=== PATIENT | female | born 2005 | race Caucasian/White ===

== ENCOUNTER 2023-03-17 17:35 | Emergency (ER) | payer OTHER ==
[2023-03-17 17:41] VITALS: RESP 18; TEMP 97.6
[2023-03-17 18:06] LABS: Basophils % (A) 0 %; Eosinophils # (A) 0.1 k/uL (0-0.7); Eosinophils % (A) 1 %; HCT 41.4 % (34.0-46.0); HGB 14.2 gm/dL (11.4-16.0); Lymphocytes # (A) 0.9 k/uL (1.0-4.8); Lymphocytes % (A) 8 %; MCH 32.3 pg (25.0-35.0); MCHC 34.4 g/dL (31.0-37.0); MCV 93.8 fL (80.0-100.0); Mean Platelet Volume 8.3; Monocytes # (A) 0.6 k/uL (0-1.0); Monocytes % (A) 6 %; Neutrophils # (A) 9.2 k/uL (1.3-7.7); Neutrophils % (A) 84 %; Platelet Count 252 k/uL (150-450); RBC 4.41 m/uL (3.80-5.40); RDW 12.5 % (11.5-15.5); WBC 10.9 k/uL (4.0-11.0)
[2023-03-17 18:16] LABS: ALT 39 U/L (4-34); AST 44 U/L (14-36); African American GFR (CKD) >90 (>60 ml/min/1.73 sqM); Albumin 4.9 g/dL (3.5-5.0); Alcohol <10 mg/dL; Alkaline Phosphatase 65 U/L (38-126); Anion Gap 9 mmol/L; Blood Urea Nitrogen 14 mg/dL (7-17); Calcium 9.7 mg/dL (8.4-10.2); Carbon Dioxide 27 mmol/L (22-30); Chloride 104 mmol/L (98-107); Glucose 99 mg/dL (74-99); Non-African American GFR(CKD) >90 (>60 ml/min/1.73 sqM); Potassium 3.8 mmol/L (3.5-5.1); Sodium 140 mmol/L (137-145); Total Bilirubin 1.3 mg/dL (0.2-1.3)
[2023-03-17 18:22] LABS: Partial Thromboplastin Time 23.8 sec (22.0-30.0); Prothrombin Time 10.7 sec (9.0-12.0)
[2023-03-17] MEDS ORDERED: HYDROmorphone 0.5 MG/0.5 ML SYRINGE IVP STA (18:23)
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
--- NOTE | 2023-03-17 18:32 | CT ---
EXAM: CT Chest With Intravenous Contrast CLINICAL HISTORY: ITS.REASON CT Reason: trauma TECHNIQUE: Axial computed tomography images of the chest with intravenous contrast. CTDI is 12.8 mGy and DLP is 357.6 mGy-cm. This CT exam was performed using one or more of the following dose reduction techniques: automated exposure control, adjustment of the mA and/or kV according to patient size, and/or use of iterative reconstruction technique. COMPARISON: No relevant prior studies available. FINDINGS: [employer] Sales Representative image demonstrates an acute segmental fracture of the left humerus. Regional skeleton appears otherwise intact, without additional acute osseous abnormality within the bony thorax. Thoracic aorta and main pulmonary are normal. There is no mediastinal hematoma. There is no adenopathy. Heart size is normal. There is no pericardial effusion. Lungs are clear. There is no consolidation, contusion, mass, pleural effusion, or pneumothorax. IMPRESSION: 1. Acute segmental fracture of the left humerus midshaft. 2. Otherwise, no acute traumatic findings. EXAM: CT Abdomen and Pelvis With Intravenous Contrast CLINICAL HISTORY: ITS.REASON CT Reason: trauma TECHNIQUE: Axial computed tomography images of the abdomen and pelvis with intravenous contrast. CTDI is 9.8 mGy and DLP is 707.7 mGy-cm. This CT exam was performed using one or more of the following dose reduction techniques: automated exposure control, adjustment of the mA and/or kV according to patient size, and/or use of iterative reconstruction technique. Delayed imaging was performed. COMPARISON: No relevant prior studies available. FINDINGS: Evaluation is degraded by motion artifact, particularly affecting the upper abdomen. There is no evidence of solid organ, vascular, bowel, or bladder injury. There is no free fluid or free air. Liver, gallbladder, spleen, pancreas, adrenal glands, and kidneys appear unremarkable as visualized. Aorta is normal in caliber. There is no adenopathy. There is no free air. Appendix is not visualized. There is no bowel obstruction or inflammatory change. Urinary bladder is normal. Uterus appears normal. Bilateral adnexal cyst/follicles are noted, largest on the left measuring 3.6 cm. There is mild free pelvic fluid. Skeleton appears intact. IMPRESSION: No acute traumatic findings.
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
[2023-03-17 19:28] VITALS: BP 120/79; PULSE 81
[2023-03-17] MEDS ORDERED: HYDROcodone/APAP 5-325MG 1 EACH TAB PO STA (20:04)
[2023-03-17] MEDS ORDERED: methocarbamoL 750 MG TAB PO STA (20:13)
== END 2023-03-17 21:00 | disposition home or self-care (01) ==
LOC: EC 17:35
DX: S42.352A Displaced comminuted fracture of shaft of humerus, left arm, initial encounter for closed fracture (principal); M25.571 Pain in right ankle and joints of right foot; M25.572 Pain in left ankle and joints of left foot; V91.83XA Other injury due to other accident to other powered watercraft, initial encounter
CPT/HCPCS: 36415; 93005; 86900; 86901; 80053; 84484; 85025; 85610; 85730; 86850; 80320; 73610; 72170; 73060; 71045; 72125; 70450; 71260; 74177; 99285; 96374; J1170; Q9967